=== PATIENT | female | born 1970 | race Caucasian/White ===

== ENCOUNTER 2017-06-22 11:35 | Emergency (ER) | payer BC ==
[~2017-06-22] VITALS: Ht 158.8 cm; Wt 58.0 kg
[~2017-06-22 11:35] MED LIST: IBUP-1050 PO; MBXC PO
[2017-06-22 11:37] VITALS: TEMP 36.6; Ht 158.8 cm; Wt 58.0 kg
[2017-06-22] MEDS ORDERED: SODIUM CHLORIDE 0.9% 500ML 500 ML IV STA (11:58)
[2017-06-22] MEDS ORDERED: HYDROmorphone INJ 0.5 MG/0.5 ML SYR IV ONE (12:15)
[2017-06-22] MEDS ORDERED: ONDANSETRON INJ 2 MG/ML 2 ML VIAL ONE (12:50)
[2017-06-22 12:54] LABS: BASO % 0.1 %; BASO ABS # 0.01 K/uL (0-0.2); EOS % 0.3 %; EOS ABS # 0.02 K/uL (0-0.5); HEMATOCRIT 42.2 % (37-47); HEMOGLOBIN 14.5 g/dL (12.0-16.0); IG# 0.01 K/uL (0.00-0.02); LYMPH % 16.1 %; LYMPH ABS # 1.12 K/uL (1.2-3.4); MEAN CELL VOLUME 100.7 fL (80-100); MEAN CORPUSCULAR HEMOGLOBIN 34.6 pg (25-34); MEAN CORPUSCULAR HGB CONC 34.4 g/dl (32-36); MEAN PLATELET VOLUME 9.9 fL (7.4-10.4); MONO % 6.5 %; MONO ABS # 0.45 K/uL (0.11-0.59); NEUT % 76.9 %; NEUT ABS # 5.33 K/uL (1.4-6.5); PLATELET COUNT 251 K/uL (130-400); RED CELL DISTRIBUTION WIDTH CV 13.6 % (11.5-14.5); RED CELL DISTRIBUTION WIDTH SD 50.3 fL (36.4-46.3); WHITE BLOOD COUNT 6.94 K/uL (4.8-10.8)
--- NOTE | 2017-06-22 13:15 | DIAGNOSTIC IMAGING REPORT ---
CT HEAD WITHOUT CONTRAST (CT) CLINICAL HISTORY: Head pain status post trauma COMPARISON STUDY: 07/30/2015 TECHNIQUE: Axial CT of the brain is performed from the vertex to the skull base. IV contrast was not administered for this examination. A dose lowering technique was utilized adhering to the principles of ALARA. CT DOSE: 900.87 mGy.cm FINDINGS: No intra or extra-axial mass lesions are visualized. There is no CT evidence of acute cortical infarction. There is no evidence of midline shift. There is no acute hemorrhage. No calvarial fractures are visualized. There is no evidence of pathologic ventricular dilatation. There is no evidence of acute sinusitis IMPRESSION: No acute intracranial findings. Electronically signed by: Jonathan Cartwright M.D. 06/22/2017 1:13 PM Dictated Date/Time: 06/22/2017 1:12 PM
--- NOTE | 2017-06-22 13:16 | DIAGNOSTIC IMAGING REPORT ---
CERVICAL SPINE W/O CT DOSE: HISTORY: Trauma fall neck pain TECHNIQUE: Multiaxial CT images of the cervical spine were performed and reformatted in the sagittal and coronal plane without the use of contrast. A dose lowering technique was utilized adhering to the principles of ALARA. COMPARISON: None. FINDINGS: No fractures. No subluxation. Prevertebral soft tissues and the C1-C2 interval are intact. No pneumothorax. Considerable degenerative osteophytic changes at the entire cervical region. IMPRESSION: No fractures within the cervical spine. Degenerative osteophytic change. The above report was generated using voice recognition software. It may contain grammatical, syntax or spelling errors. Electronically signed by: Juan Wheat M.D. 06/22/2017 1:14 PM Dictated Date/Time: 06/22/2017 1:12 PM
[2017-06-22 13:20] LABS: ALBUMIN 3.9 gm/dl (3.4-5.0); ALT/SGPT 19 U/L (12-78); AST/SGOT 11 U/L (15-37); BLOOD UREA NITROGEN 13 mg/dl (7-18); CARBON DIOXIDE 27 mmol/L (21-32); CREATININE 0.94 mg/dl (0.60-1.20); GLUCOSE 116 mg/dl (70-99); LIPASE 143 U/L (73-393); POTASSIUM 3.6 mmol/L (3.5-5.1); SODIUM 139 mmol/L (136-145)
[2017-06-22 13:23] LABS: ALKALINE PHOSPHATASE 75 U/L (45-117)
--- NOTE | 2017-06-22 13:31 | DIAGNOSTIC IMAGING REPORT ---
R HAND MIN 3 VIEWS ROUTINE CLINICAL HISTORY: Right thumb pain. History of dislocation. COMPARISON: None. DISCUSSION: No acute fractures or dislocations are visualized. There are mild osteoarthritic changes the level of the first metacarpal phalangeal joint. IMPRESSION: No acute fractures or dislocations identified. Electronically signed by: Jonathan Cartwright M.D. 06/22/2017 1:30 PM Dictated Date/Time: 06/22/2017 1:29 PM
--- NOTE | 2017-06-22 13:34 | DIAGNOSTIC IMAGING REPORT ---
CHEST ONE VIEW PORTABLE CLINICAL HISTORY: fall trauma. Pain. COMPARISON STUDY: No previous studies for comparison. FINDINGS: The bones soft tissues and hemidiaphragms are normal. The cardiomediastinal silhouette is normal. The lungs are clear. The pulmonary vasculature is normal. IMPRESSION: Negative chest. The above report was generated using voice recognition software. It may contain grammatical, syntax or spelling errors. Electronically signed by: Juan Wheat M.D. 06/22/2017 1:33 PM Dictated Date/Time: 06/22/2017 1:30 PM
--- NOTE | 2017-06-22 13:35 | DIAGNOSTIC IMAGING REPORT ---
THORACIC SPINE 3 VIEWS ROUTINE HISTORY: Trauma. Pain. fall hit back COMPARISON: None. FINDINGS: There is no fracture. No subluxation. Mild degenerative disc change. Mild scoliosis. IMPRESSION: No acute abnormality. Mild degenerative change. The above report was generated using voice recognition software. It may contain grammatical, syntax or spelling errors. Electronically signed by: Juan Wheat M.D. 06/22/2017 1:34 PM Dictated Date/Time: 06/22/2017 1:33 PM
--- NOTE | 2017-06-22 13:36 | DIAGNOSTIC IMAGING REPORT ---
LUMBAR SPINE 5 VIEWS HISTORY: Low back pain. fall hit back COMPARISON: None. FINDINGS: There is no fracture. No subluxation. Disc spaces are preserved. Mild facet degenerative changes seen within the lower lumbar spine. Small endplate osteophytes seen throughout the lumbar spine. IMPRESSION: No fracture or subluxation within the lumbar spine. Electronically signed by: Adal Zamora M.D. 06/22/2017 1:34 PM Dictated Date/Time: 06/22/2017 1:33 PM
--- NOTE | 2017-06-22 14:09 | DIAGNOSTIC IMAGING REPORT ---
PELVIS ONE VIEW, RIGHT HIP 2 VIEWS HISTORY: Right hip pain. COMPARISON: None. FINDINGS: No acute fracture or dislocation within the pelvis or hips. The sacrum is intact. Tiny ossific densities adjacent to the acetabula are likely chronic. Tiny marginal osteophytes within the bilateral hips consistent with minimal degenerative changes. Cartilage spaces are maintained for age. Focal cortical thickening along the lateral proximal shafts of the bilateral femora, right greater than left. This is of doubtful clinical significance and could be due to a site of muscle insertion. Soft tissues are unremarkable. IMPRESSION: 1. No acute fracture or dislocation within the pelvis or hips. 2. Minimal degenerative changes within the bilateral hips. Electronically signed by: Adal Zamora M.D. 06/22/2017 2:07 PM Dictated Date/Time: 06/22/2017 2:05 PM
[2017-06-22 14:36] VITALS: BP 111/72; PULSE 77; O2SAT 100
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
== END 2017-06-22 14:38 | disposition home or self-care (01) ==
LOC: C.EDB 11:36 → C.EDA 14:38
DX: S16.1XXA Strain of muscle, fascia and tendon at neck level, initial encounter (principal); S60.011A Contusion of right thumb without damage to nail, initial encounter; M25.551 Pain in right hip; W00.0XXA Fall on same level due to ice and snow, initial encounter; F17.200 Nicotine dependence, unspecified, uncomplicated